=== PATIENT | male | born 1965 | race Caucasian/White ===

== ENCOUNTER 2016-05-19 13:32 | Day surgery (SDC) | payer BC ==
[~2016-05-19] VITALS: Ht 175.3 cm; Wt 87.8 kg
[2016-05-19] MEDS ORDERED: CIALIS5 MG PO (13:47)
[2016-05-19 14:08] VITALS: BP 125/90; PULSE 76; TEMP 98.7
[2016-05-19 15:30] VITALS: BP 118/79; PULSE 74; TEMP 97.5
[2016-05-19 15:45] VITALS: BP 127/81; PULSE 75
[2016-05-19 16:00] VITALS: BP 126/79; PULSE 78
== END 2016-05-19 16:15 | disposition home or self-care (01) ==
LOC: SDCO 13:32
DX: Z12.11 Encounter for screening for malignant neoplasm of colon (principal); K64.4 Residual hemorrhoidal skin tags; Z87.891 Personal history of nicotine dependence
CPT/HCPCS: OP; J2250; J2405; J3010; J7030

== ENCOUNTER → 2016-10-21 | Outpatient (CLI) | payer BC ==
[~2016-10-21] MED LIST: CIALIS5 MG PO
== END ==
LOC: COL.RAD 13:17
DX: K40.90 Unilateral inguinal hernia, without obstruction or gangrene, not specified as recurrent (principal)

== ENCOUNTER → 2024-02-02 | Outpatient (CLI) | payer OTHER | LOC: MHCPAIN 12:12 | DX: M47.816 Spondylosis without myelopathy or radiculopathy, lumbar region (principal); M54.16 Radiculopathy, lumbar region | CPT/HCPCS: G0463 ==